=== PATIENT | female | born 1965 | race Caucasian/White ===

== ENCOUNTER 2018-02-10 15:37 | Emergency (ER) | payer OTHER ==
[2018-02-10 15:43] VITALS: TEMP 98.5; BMI 32.5
--- NOTE | 2018-02-10 15:58 | PDOC ---
History of Present Illness - General Chief Complaint: Nausea/Vomiting Stated Complaint: VOMITING (POST EYE SURG) Time Seen by Provider: 02/10/18 15:58 History Source: Patient, Spouse Exam Limitations: No Limitations - History of Present Illness Initial Comments: Pt, with PMH of lupus, kidney transplant (2005) and b/l glaucoma with stenting, presents with R eye pain, nausea and vomiting. For the past week, pt states she has had fatigue and chills, and was concerned she may be having a "kidney flair ". She called the [facility] kidney transplant clinic where she has received follow-up care since her transplant, and they suggested she see a physician if she did not improve over the week. The pt had a R Ahmed tube placed for glaucoma [address] Marinelli at [facility]. She had a L Ahmed tube placed 2 months ago with no incident. She has had consistent pain in her R eye with eye movement, decreased vision, and light sensitivity since placement of her drainage tube. This morning (02/10) at approximately 12am, the pt began to experience nausea and 6-7 episodes of non-bloody vomiting. She has been unable to tolerate PO intake since that time. She has also noticed pressure over her R eye and forehead, and swelling over her R eyelid. The pt denies LOC, recent change in weight, SOB, chest pain, abdominal pain, diarrhea/constipation, changes to urinary frequency or dysuria. She has taken 2 adult tylenol at 2 pm today which improved the fevers/chills, but not nausea or vomiting. 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 No: Loss of Appetite HEENTM: Yes: Eye Pain (R eye pain x2 weeks since placement of R eye tube.), Blurred Vision. No: Tearing, Recent change in vision (R eye vision has been reduced since procedure.), Double Vision, Cataracts, Hearing Loss Respiratory: No: Cough, Shortness of Breath Cardiac (ROS): No: Chest Pain, Edema, Irregular Heart Rate, Palpitations, Syncope ABD/GI: Yes: Poor Appetite, Poor Fluid Intake (unable to tolerate PO intake since vomiting this morning), Vomiting. No: Abdominal Distended, Abd. Pain w/ defecation, Constipated, Diarrhea, Indigestion, Tarry Stools : No: Burning, Dysuria, Frequency, Flank Pain, Hematuria, Pain, Urgency Musculoskeletal: No: Joint Pain, Joint Swelling Integumentary: No: Bruising, Rash Neurological: Yes: Headache (pressure over R eye and forehead). No: Seizure, Unsteady Gait Psychiatric: No: Sleep Pattern Change, Change in Appetite Endocrine: No: Increased Urine, Change in Weight Hematologic/Lymphatic: No: Anemia, Blood Clots All Other Systems: Reviewed and Negative *Physical Exam - Vital Signs Last Vital Signs Temp Pulse Resp BP Pulse Ox 98.5 F 76 18 153/84 100 02/10/18 15:38 02/10/18 15:38 02/10/18 15:38 02/10/18 15:38 02/10/18 15:38 - Physical Exam General Appearance: Yes: Nourished, Appropriately Dressed, Moderate Distress ( Pt complaining of n/v. Vomiting clear fluid, no hematemesis. ) HEENT: positive: EOMI, ANNMARIE, Normal Voice, Photophobia (photophobia R eye), Hearing Grossly Normal, Other (R eye erythema and tearing with eye opening, normal pupillary response. No pain with EOM). negative: Rhinorrhea Neck: positive: Trachea midline, Normal Thyroid, Supple. negative: Tender, Rigid Respiratory/Chest: positive: Lungs Clear, Normal Breath Sounds. negative: Chest Tender, Respiratory Distress, Accessory Muscle Use, Labored Respiration Cardiovascular: positive: Regular Rhythm, Regular Rate, S1, S2. negative: Edema , JVD, Murmur Vascular Pulses: Carotid (R): 4+, Carotid (L): 4+ Gastrointestinal/Abdominal: positive: Normal Bowel Sounds, Flat, Soft. negative : Tender, Organomegaly, Pulsatile Mass, Guarding, Rebound Lymphatic: negative: Adenopathy Musculoskeletal: positive: Normal Inspection. negative: CVA Tenderness Extremity: positive: Normal Capillary Refill, Normal Inspection, Normal Range of Motion, Pelvis Stable. negative: Tender Integumentary: positive: Normal Color, Dry, Warm Neurologic: positive: lower in supervisor II-XII NML intact, Fully Oriented, Alert, Normal Mood/ Affect (complaining of nausea. responds appropriately to questions and alert. no FND. ), Normal Response, Motor Strength 5/5 ED Treatment Course - LABORATORY CBC & Chemistry Diagram: 02/10/18 17:30 02/10/18 17:30 - RADIOLOGY Radiology Studies Ordered: head CT non-contrast 02/10/18 19:27 Radiograph Interpretation: Metallic implants along b/l globes correlating w prior surgery. Negative unenhanced CT of brain. 02/10/18 20:32 Medical Decision Making - Medical Decision Making Pt seen. Ordered CBC, CMP, lactate and CRP (r/o infection 2/2 kidney transplant) . Ordered IVF (1L NS) and zofran 4 mg IV for nausea/vomiting. Pt takes prograf and prednisone and is compliant with medications since her transplant. Pt has appointment with Dr. Marinelli at [facility] tomorrow (02/11) [phone] Pt sees [facility] kidney transplant clinic [phone] 02/10/18 17:01 Pt was taken for head CT non-contrast, awaiting read. 02/10/18 19:17 Calling [facility] kidney clinic to alert them that Mrs. Mckeon is being seen in ED and any further recommendations. Pt will f/u with Dr. Marinelil tomorrow morning. 02/10/18 19:27 Called kidney clinic. Physician on-call agreed with plan, and said her BUN (26) and creatinine (1.8) is in-line with post-transplant pt. Suggested obtaining UA to r/o UTI. Pt has complained of no urinary symptoms. Pt will f/u with kidney clinic this week. 02/10/18 19:41 Pt provided 1 L NS, 4 mg IV Zofran for nausea. CT results negative. Pt symptoms improved. 02/10/18 20:30 Repeat lactate. 1.2 (trending down from 2.9). Pt nausea and pain improved. UA negative for infection. 02/10/18 21:21 *DC/Admit/Observation/Transfer Diagnosis at time of Disposition: Nausea & vomiting Qualifiers: Vomiting type: unspecified Vomiting Intractability: non-intractable Qualified Code(s): R11.2 - Nausea with vomiting, unspecified Glaucoma Qualifiers: Glaucoma type: unspecified Laterality: bilateral Qualified Code(s): H40.9 - Unspecified glaucoma - Discharge Dispostion Disposition: HOME Condition at time of disposition: Improved Decision to Admit order: No - Referrals - Patient Instructions Printed Discharge Instructions: DI for Vomiting -- Adult Additional Instructions: Please schedule an appointment with the [facility] kidney transplant clinic this week to discuss your visit today. Please go to your eye appointment with Dr. Marinelli at the [facility] as scheduled tomorrow. Please return for any development of fever/chills, inability to keep down food or water, increased eye or head pain, or any additional concerns. Zofran has been sent to your pharmacy for nausea (4 mg taken under the tongue). - Post Discharge Activity
[2018-02-10] MEDS ORDERED: ONDANSETRON 4 MG/2 ML VIAL IVPUSH ONE ×2 (16:39→19:48)
[2018-02-10] MEDS ORDERED: SODIUM CHLORIDE 1,000 ML IV STA ×2 (16:40→20:23)
[2018-02-10] MEDS ORDERED: ONDANSETRON 4 MG/2 ML VIAL ONE ×2 (17:31→19:51)
[2018-02-10 17:37] LABS: BASO % 0.5 % (0-2.0); HEMATOCRIT 38.8 % (32.4-45.2); HEMOGLOBIN 11.5 GM/dL (10.7-15.3); LYMPH % 12.1 % (8-40); MCH 20.9 pg (25.7-33.7); MCHC 29.6 g/dl (32.0-36.0); MEAN CELL VOLUME 70.5 fl (80-96); MEAN PLT VOLUME 8.3 fl (7.5-11.1); MONO % 3.6 % (3.8-10.2); NEUT % 83.8 % (42.8-82.8); PLATELET COUNT 253 K/MM3 (134-434); RDW 14.3 % (11.6-15.6); WHITE BLOOD COUNT 8.8 K/mm3 (4.0-10.0)
[2018-02-10 18:16] LABS: ALBUMIN 4.1 g/dl (3.4-5.0); ANION GAP 10 (8-16); BILIRUBIN,TOTAL 0.4 mg/dL (0.2-1.0); BLOOD UREA NITROGEN 26 mg/dL (7-18); CALCIUM 9.3 mg/dL (8.5-10.1); CHLORIDE 108 mmol/L (98-107); CO2 23 mmol/L (21-32); CREATININE 1.8 mg/dL (0.55-1.02); GLUCOSE,RANDOM 126 mg/dL (74-106); SGOT/AST 11 U/L (15-37); SGPT/ALT 18 U/L (12-78); SODIUM 141 mmol/L (136-145); TOT PROT 7.7 g/dl (6.4-8.2)
[2018-02-10 18:17] LABS: ALK PHOS 188 U/L (45-117)
--- NOTE | 2018-02-10 19:08 | PDOC ---
Attending Attestation - HPI HPI: 02/10/18 19:27 The patient is a 52 year old female with a significant past medical history of lupus, kidney transplant secondary to lupus ([facility] kidney transplant clinic 2005), sciatica, lumbar radiculopathy, bilateral glaucoma s/p stenting, who presents to the emergency department complaining of 1 day of vomiting and right-sided head and eye pain. She reports approximately 7 episodes of non- bloody vomiting onset last night around midnight with PO intolerance since they began. She describes head pain as pressure localized to the right side of her forehead and right eye. The patient reports since that since eye surgery she has been compliant with her medication and reports that her labs have been normal. She endorses associated symptoms of nausea, chills, and subjective fever. She states that she took Tylenol around 2 pm which subsided fever, but patient is nauseous and vomiting upon arrival. The patient notes that when she has lupus flares she experiences nausea, vomiting, fever, chills, and diarrhea. She also notes that she has a follow-up appointment with [facility] tomorrow. The patient denies chest pain, back pain, shortness of breath, and dizziness. Denies diarrhea, and constipation. Denies dysuria, frequency, urgency, and hematuria. Allergies: metoprolol Past surgical history: kidney transplant (2005), bilateral Ahmed valves ([facility] eye 2.5 months ago, R eye 2 weeks ago) Social history: No reported cigarette, alcohol, or drug use. PCP: none, only sees kidney transplant clinic at [facility] since 2005 for revisits. - Physicial Exam PE: 02/10/18 19:50 GENERAL: Well-appearing, well-nourished. No apparent distress. HEENT: Normocephalic, atraumatic. PERRL, EOM intact. CARDIOVASCULAR: (+)Slight tachycardia. Normal S1, S2. Regular rate and rhythm. PULMONARY: Clear to auscultation bilaterally. ABDOMEN: Soft, non-distended, non-tender. EXTREMITIES: No flank pain. No pitting edema. Normal ROM in all four extremities. No gross deformities. SKIN: Warm, dry. No rash NEUROLOGICAL: No gross focal neurological deficits. - Medical Decision Making 02/10/18 19:54 Documentation prepared by Carol Hall, acting as chief medical director for Paula Ayers MD. <Carol Hall - Last Filed: 02/10/18 19:27> - Resident Resident Name: Jany Conklin - ED Attending Attestation I have performed the following: I have examined & evaluated the patient, The case was reviewed & discussed with the resident, I agree w/resident's findings & plan, Exceptions are as noted - HPI HPI: 02/10/18 19:07 52-year-old woman presents with nausea, vomiting, and right eye pain. She had eye surgery recently for glaucoma. Past medical history significant for kidney transplant 12 years ago due to renal failure due to long-standing lupus - Medical Decision Making ct sacn 02/10/18 21:50 CAT scan of the head is unremarkable w exception of the implants bilaterally -pt 's nausea resolved w zofran,will send RX for zofran to her pharmacy -pt is followed by GI and has an appt w them for endoscopy in May, suggested she call them to be seen earlier -pt already has an appt w her chief inspector tomorrow <Paula Ayers - Last Filed: 02/10/18 21:53> ED Treatment Course - LABORATORY CBC & Chemistry Diagram: 02/10/18 17:30 02/10/18 17:30 - ADDITIONAL ORDERS Additional order review: Laboratory Results 02/10/18 02/10/18 02/10/18 17:30 17:30 17:30 Sodium 141 Potassium 4.0 Chloride 108 H Carbon Dioxide 23 Anion Gap 10 BUN 26 H Creatinine 1.8 H Creat Clearance w eGFR 29.43 Random Glucose 126 H Lactic Acid 2.9 H* Calcium 9.3 Total Bilirubin 0.4 AST 11 L ALT 18 Alkaline Phosphatase 188 H C-Reactive Protein < 0.3 Total Protein 7.7 Albumin 4.1 02/10/18 17:30 RBC 5.50 H MCV 70.5 L MCHC 29.6 L RDW 14.3 MPV 8.3 Neutrophils % 83.8 H Lymphocytes % 12.1 Monocytes % 3.6 L Eosinophils % 0.0 Basophils % 0.5 - RADIOLOGY Radiograph Interpretation: 02/10/18 19:[address] was reviewed by Dr. Ayers and over-read by Imaging Business Operations Consultant. Patient Information: : 1965 Name: SANJANA MORALES Sex: F Study Description: CT CTA CARDIAC / CT HEAD Modality: CT Location: [facility] Referring Physician: RON KOTHARI Comments: Ludin Basilio MD wrote on Feb 10, 2018 at 07:28 PM: Referring Physician: RON KOTHARI Patient Name: ANDREW ALLAN THIS IS A PRELIMINARY REPORT FROM IMAGING SUPERVISOR FINISHING DATE OF SERVICE: 2018-02-10 18:49:18 IMAGES: 135 Exam: CT head without IV contrast. Clinical indication:Right eye pressure. Comparison:None available. Technique: Axial unenhanced CT images from the skull base through the brain were obtained followed by coronal and sagital reformats. Findings: The visualized bony structures are unremarkable. There are some curvilinear metallic implants along the lateral aspects of the bilateral globes. The visualized paranasal sinuses and mastoid air cells are clear. There is no evidence of intra-or extra-axial hemorrhage. The ventricles and basilar cisterns are unremarkable. There is no evidence of intracranial mass, acute infarct, or midline shift. Impression: 1. Curvilinear metallic implants along the lateral aspects of the bilateral globes. Correlate with prior surgery. 2. Otherwise, negative unenhanced CT of the brain. Individualized dose optimization techniques were used for this CT. THIS DOCUMENT HAS BEEN ELECTRONICALLY SIGNED Ludin Basilio MD 02/10/2018 18:27 MÓNICA Davis. Please call Imaging Business Operations Consultant [phone]) with questions. Ludin Basilio MD Clinicians - Please contact Imaging Business Operations Consultant with further questions at [phone]) Patients - Please contact your Ordering Provider with questions. - Medications Given in the ED: ED Medications Discontinued Medications Generic Name Dose Route Start Last Admin Trade Name Freq PRN Reason Stop Dose Admin Sodium Chloride 1,000 mls @ 1,000 mls/hr 02/10/18 16:40 02/10/18 17:30 Normal Saline - IV 02/10/18 17:39 1,000 mls/hr ASDIR STA Administration Ondansetron HCl 4 mg 02/10/18 16:39 02/10/18 17:30 Zofran Injection IVPUSH 02/10/18 16:40 4 mg ONCE ONE Administration <Carol Hall - Last Filed: 02/10/18 19:27> - LABORATORY CBC & Chemistry Diagram: 02/10/18 17:30 02/10/18 17:30 <Paula Ayers - Last Filed: 02/10/18 21:53>
[2018-02-10] MEDS ORDERED: ACETAMINOPHEN 1000 MG/100 ML VIAL (NON FORMULARY) IVPB ONE (19:47)
[2018-02-10] MEDS ORDERED: ACETAMINOPHEN INJECTION 100 ML IVPB ONE (19:51)
[2018-02-10 20:13] LABS: URINE APPEARANCE CLEAR; URINE BILIRUBIN NEGATIVE (<2.0 mg/dL); URINE COLOR LTYELLOW; URINE GLUCOSE (UA) NEGATIVE (NEGATIVE); URINE KETONE NEGATIVE (NEGATIVE); URINE LEUK ESTERASE NEGATIVE (NEGATIVE); URINE NITRITE NEGATIVE (NEGATIVE); URINE PROTEIN NEGATIVE (NEGATIVE); URINE UROBILINOGEN NEGATIVE mg/dL (0.2-1.0)
[2018-02-10 21:51] VITALS: BP 134/76; PULSE 89
== END 2018-02-10 21:45 | disposition home or self-care (01) ==
LOC: JER 15:37
PROC: 3E0337Z Introduction of Electrolytic and Water Balance Substance into Peripheral Vein, Percutaneous Approach (ICD-10-PCS; principal; 2018-02-10)
PROC: 3E033GC Introduction of Other Therapeutic Substance into Peripheral Vein, Percutaneous Approach (ICD-10-PCS; 2018-02-10)
PROC: 3E033GC Introduction of Other Therapeutic Substance into Peripheral Vein, Percutaneous Approach (ICD-10-PCS; 2018-02-10)
PROC: 3E033NZ Introduction of Analgesics, Hypnotics, Sedatives into Peripheral Vein, Percutaneous Approach (ICD-10-PCS; 2018-02-10)
DX: H40.89 Other specified glaucoma (principal); M32.9 Systemic lupus erythematosus, unspecified; Z94.0 Kidney transplant status; Z96.9 Presence of functional implant, unspecified
CPT/HCPCS: 36415; 70450-TC; 80053; 81003; 83605; 85025; 86140; 87086; 96361; 96374; 96375; 99282-25; J0131; J7030